=== PATIENT | male | born 1975 | race African-American/Black ===

== ENCOUNTER 2017-02-15 10:08 | Emergency (ER) | payer SELFPAY ==
[~2017-02-15] VITALS: Ht 185.4 cm; Wt 104.4 kg
[2017-02-15 11:27] VITALS: BP 137/102
[2017-02-15 11:34] LABS: BLOOD UREA NITROGEN 11 mg/dL (7-18)
[2017-02-15 11:52] LABS: IS PT STATUS REG ER OR PRE ER? YES
== END 2017-02-15 12:40 | disposition home or self-care (01) ==
LOC: ED 11:10
DX: R07.89 Other chest pain (principal); F17.200 Nicotine dependence, unspecified, uncomplicated
CPT/HCPCS: 36415; 71020; 80048; 82040; 84484; 85025; 93005